=== PATIENT | male | born 1980 | race African-American/Black ===

== ENCOUNTER 2016-09-29 15:13 | Emergency (ER) | payer OTHER ==
[2016-09-29 16:14] VITALS: BP 129/78
== END 2016-09-29 16:14 | disposition other institution (70) ==
LOC: ED 15:13
DX: Z02.89 Encounter for other administrative examinations (principal); J45.909 Unspecified asthma, uncomplicated; Z88.2 Allergy status to sulfonamides; V43.52XA Car driver injured in collision with other type car in traffic accident, initial encounter; Y99.8 Other external cause status; Y93.89 Activity, other specified; Y92.89 Other specified places as the place of occurrence of the external cause